=== PATIENT | female | born 1970 | race American Indian/Alaskan Native ===

== ENCOUNTER 2017-03-04 12:00 | Emergency (ER) | payer MEDICAID ==
--- NOTE | 2017-03-04 12:49 | XRay Report ---
ROUTINE CHEST, TWO VIEWS: HISTORY: chest pain. The trachea, heart, mediastinal contour, lung leon and bony thorax are unremarkable. IMPRESSION: Unremarkable chest x-ray.
[2017-03-04 13:13] LABS: Basophils % (Auto) 0.6 % (0.0-1.8); Eosinophils % (Auto) 1.7 % (0.0-4.3); Hematocrit 21.3 % (30.3-42.9); Hemoglobin 6.9 gm/dl (10.1-14.3); Mean Corpuscular HGB Conc 32 % (30-34); Mean Corpuscular Hemoglobin 29 pg (28-32); Mean Corpuscular Volume 90 fl (79-97); Platelet Count 144 K/mm3 (140-440); Red Blood Count 2.37 M/mm3 (3.65-5.03); White Blood Count 3.5 K/mm3 (4.5-11.0)
[2017-03-04 13:14] LABS: Red Cell Distribution Width 23.4 % (13.2-15.2)
[2017-03-04 13:22] LABS: INR 1.25 (0.87-1.13)
[2017-03-04 13:23] LABS: Partial Thromboplastin Time 32.4 Sec. (24.2-36.6)
[2017-03-04] MEDS ORDERED: CATAPRES PO ONE (13:27)
[2017-03-04 13:36] LABS: Alanine Aminotransferase 19 units/L (7-56); Albumin 2.8 g/dL (3.9-5); Albumin/Globulin Ratio 0.4 %; Alkaline Phosphatase 44 units/L (35-129); Anion Gap 21 mmol/L; BUN/Creatinine Ratio 23; Blood Urea Nitrogen 9 mg/dL (7-17); Calcium 8.1 mg/dL (8.4-10.2); Carbon Dioxide 23 mmol/L (22-30); Chloride 98.3 mmol/L (98-107); Glucose 82 mg/dL (65-100); Potassium 3.5 mmol/L (3.6-5.0); Sodium 139 mmol/L (137-145); Total Protein 9.2 g/dL (6.3-8.2)
--- NOTE | 2017-03-04 13:45 | Emergency Department Report ---
HPI - General Chief Complaint: Nosebleed Time Seen by Provider: 03/04/17 13:27 - HPI HPI: Room 4 The patient is a 47-year-old female presenting with a chief complaint of epistaxis. The patient states last night she developed epistaxis from the left naris for approximately 30 minutes. Patient states she will run Cold water on her nose and hold tissue against it before it stopped. The patient states she went to sleep and when she awakened this morning she had a second episode of epistaxis again lasting approximately 30 minutes from the left naris. The patient then came to the emergency department. Patient denies any preceding trauma or URI symptoms. Patient does admit to occasional cough past 3 weeks. Patient denies shortness of breath, dizziness or lightheadedness with standing. Patient currently denies complaints Location: Left naris Duration: [See above] Quality: Painless Severity: Moderate Modifying factors: [see above] Context: [see above] Mode of transportation: [not driving] ED Past Medical Hx - Past Medical History Previous Medical History?: No Additional medical history: History of anemia in the past - Surgical History Past Surgical History?: No - Family History Family history: no significant - Social History Smoking Status: Never Smoker Substance Use Type: None (denies illicit drug use) - Medications Home Medications: Home Medications Medication Instructions Recorded Confirmed Last Taken Type Ciprofloxacin HCl [Ciprofloxacin 500 mg PO BID #14 tablet 03/04/17 Unknown Rx TAB] Docusate Sodium [Colace] 100 mg PO BID PRN #30 capsule 03/04/17 Unknown Rx Ferrous Sulfate [Feosol 325 MG tab] 325 mg PO BID #30 tablet 03/04/17 Unknown Rx amLODIPine [Norvasc] 5 mg PO DAILY #90 tab 03/04/17 Unknown Rx ED Review of Systems ROS: Stated complaint: NOSEBLEED, HTN Other details as noted in HPI ENT: epistaxis Respiratory: cough Physical Exam - Physical Exam Vital Signs: Vital Signs 03/04/17 12:04 Temperature 97.6 F Pulse Rate 91 H Respiratory 18 Rate Blood Pressure 213/123 O2 Sat by Pulse 97 Oximetry Physical Exam: GENERAL: The patient is well-developed well-nourished female lying on stretcher not appearing to be in acute distress. [] HEENT: Normocephalic. Atraumatic. Extraocular motions are intact. Patient has moist mucous membranes. No active epistaxis. No evidence of dry blood in the nares NECK: Supple. Trachea midline CHEST/LUNGS: Clear to auscultation. There is no respiratory distress noted. HEART/CARDIOVASCULAR: Regular. There is no tachycardia. There is no gallop rub or murmur. ABDOMEN: Abdomen is soft, nontender. Patient has normal bowel sounds. There is no abdominal distention. SKIN: There is no rash. There is no edema. There is no diaphoresis. NEURO: The patient is awake, alert, and oriented. The patient is cooperative. The patient has normal speech MUSCULOSKELETAL: There is no evidence of acute injury. ED Course Vital Signs 03/04/17 12:04 Temperature 97.6 F Pulse Rate 91 H Respiratory 18 Rate Blood Pressure 213/123 O2 Sat by Pulse 97 Oximetry - Reevaluation(s) Reevaluation #1: 03/04/17 15:39 Patient ambulates around the ED without difficulty. Patient never complains of dizziness shortness of breath or fatigue. Although patient has a significant anemia she does not appear symptomatic at this time. Subsequently I do not believe the patient needs to be admitted for blood transfusion. The patient is not orthostatic so I do not believe this anemia is acute. Patient given strong warning to return ED Medical Decision Making - Lab Data Result diagrams: 03/04/17 12:49 03/04/17 12:49 Laboratory Tests 03/04/17 03/04/17 03/04/17 12:49 12:49 12:49 WBC 3.5 L RBC 2.37 L Hgb 6.9 L Hct 21.3 L MCV 90 MCH 29 MCHC 32 RDW 23.4 H Plt Count 144 Lymph % (Auto) 12.0 L [place]bers[place] % (Auto) 9.7 H Eos % (Auto) 1.7 Baso % (Auto) 0.6 Lymph # 0.4 L [place]berson # 0.3 Eos # 0.1 Baso # 0.0 Seg Neutrophils % 76.0 H Seg Neutrophils # 2.6 PT 16.4 H INR 1.25 H APTT 32.4 Sodium 139 Potassium 3.5 L Chloride 98.3 Carbon Dioxide 23 Anion Gap 21 BUN 9 Creatinine 0.4 L Estimated GFR > 60 BUN/Creatinine Ratio 23 Glucose 82 Calcium 8.1 L Total Bilirubin 0.30 AST 18 ALT 19 Alkaline Phosphatase 44 Troponin T < 0.010 Total Protein 9.2 H Albumin 2.8 L Albumin/Globulin Ratio 0.4 - EKG Data -: EKG Interpreted by Me EKG shows normal: sinus rhythm Rate: normal - EKG Data When compared to previous EKG there are: previous EKG unavailable Interpretation: other (no ischemic changes seen) - Radiology Data Radiology results: image reviewed (chest x-ray) interpreted by me: Chest [id number] right middle lobe infiltrate. No pneumothorax - Differential Diagnosis epistaxis, hypertension, pneumonia, bronchitis Critical care attestation.: If time is entered above; I have spent that time in minutes in the direct care of this critically ill patient, excluding procedure time. ED Disposition Clinical Impression: Pneumonia, Epistaxis, Hypertension, Anemia Disposition: - TO HOME OR SELFCARE Is pt being admited?: No Does the pt Need Aspirin: No Condition: Stable Instructions: Bacterial Pneumonia (ED), Hypertension (ED) Additional Instructions: Return to the emergency department immediately should you develop worsening symptoms, fever, inability to tolerate food or liquid or any other concerns. Prescriptions: amLODIPine [Norvasc] 5 mg PO DAILY #90 tab Ciprofloxacin HCl [Ciprofloxacin TAB] 500 mg PO BID #14 tablet Docusate Sodium [Colace] 100 mg PO BID PRN #30 capsule PRN Reason: Constipation Ferrous Sulfate [Feosol 325 MG tab] 325 mg PO BID #30 tablet Referrals: TIMOTHY DURHAM MD [Staff Physician] - 3-5 Days (Dr. Durham is a straddle bug operator ( lung doctor). Please follow up with him for further evaluation) PRIMARY CARE, [Primary Care Provider] - 3-5 Days [facility] [Outside] - 3-5 Days Time of Disposition: 15:47
[2017-03-04] MEDS ORDERED: NORVASC PO ONE (15:33)
[2017-03-04 16:35] VITALS: BP 167/92
== END 2017-03-04 16:50 | disposition home or self-care (01) ==
LOC: ED 12:00
DX: J18.9 Pneumonia, unspecified organism (principal); I10 Essential (primary) hypertension; D64.9 Anemia, unspecified
CPT/HCPCS: 36415; 71020; 80053; 84484; 85025; 85610; 85730; 93005; 93010